=== PATIENT | female | born 1985 | race Caucasian/White ===

== ENCOUNTER 2020-04-10 03:54 | Emergency (ER) | payer BC ==
[~2020-04-10] VITALS: Ht 172.7 cm; Wt 154.6 kg
--- NOTE | 2020-04-10 04:13 | NUR ---
assessment made. seen by ERP. patient to Ultrasound.
--- NOTE | 2020-04-10 04:53 | NUR ---
back from Ultrasound. awaiting result.
--- NOTE | 2020-04-10 04:56 | NUR ---
ERP at bedside for re-evaluation.
--- NOTE | 2020-04-10 05:06 | NUR ---
patient discharged with instruction. verbalized understanding.
[2020-04-10 05:07] VITALS: BP 141/81
== END 2020-04-10 05:09 | disposition home or self-care (01) ==
LOC: ED 04:40
DX: M79.662 Pain in left lower leg (principal); R00.0 Tachycardia, unspecified
CPT/HCPCS: 93005; 99284

== ENCOUNTER → 2020-04-27 | Outpatient (CLI) | payer BC | END | disposition home or self-care (01) | LOC: CFH 14:37 | PROVIDERS: ATTEND Emergency Medicine | DX: R10.11 Right upper quadrant pain (principal) | CPT/HCPCS: 76700 ==